=== PATIENT | female | born 1990 | race African-American/Black ===

== ENCOUNTER 2017-01-17 13:23 | Emergency (ER) | payer MEDICAID, OTHER ==
[~2017-01-17] VITALS: Ht 157.5 cm; Wt 140.9 kg
[~2017-01-17 13:23] MED LIST: NOCURR
[2017-01-17] MEDS ORDERED: Diuretic PO (15:15)
[2017-01-17 19:25] VITALS: BP 136/86
[2017-01-17] MEDS ORDERED: ALPRAZolam 0.25 MG TABLET PO ONE (19:30)
== END 2017-01-17 19:57 | disposition home or self-care (01) ==
LOC: EMS 13:26
DX: J02.9 Acute pharyngitis, unspecified (principal); R00.2 Palpitations; I10 Essential (primary) hypertension; G43.909 Migraine, unspecified, not intractable, without status migrainosus; Z88.6 Allergy status to analgesic agent
CPT/HCPCS: 93005; 99283

== ENCOUNTER 2025-02-09 12:03 | Emergency (ER) | payer OTHER ==
[~2025-02-09] VITALS: Ht 157.5 cm; Wt 72.0 kg
[~2025-02-09 12:03] MED LIST changes: +Diuretic PO; -NOCURR
[2025-02-09 12:41] VITALS: TEMP 97.5
[2025-02-09 13:23] LABS: BASOPHILS % (AUTO) 0.4 % (0.0-2.0); EOSINOPHILS % (AUTO) 1.1 % (1.0-6.0); HEMATOCRIT 35.1 % (36-46); HEMOGLOBIN 11.3 g/dL (12.0-16.0); LYMPHOCYTES # (AUTO) 1.2 K/uL (1.0-4.8); LYMPHOCYTES % (AUTO) 19.9 % (22.0-44.0); MEAN CORPUSCULAR HEMOGLOBIN 29.7 pg (26.0-34.0); MEAN CORPUSCULAR HGB CONC 32.1 G/dL (31.0-37.0); MEAN CORPUSCULAR VOLUME 92 fL (80-100); MONOCYTES # (AUTO) 0.4 K/uL (0.1-1.0); MONOCYTES % (AUTO) 6.7 % (2.0-9.0); NEUTROPHILS # (AUTO) 4.5 K/uL (1.8-7.7); NEUTROPHILS % (AUTO) 71.9 % (40.0-70.0); PLATELET COUNT (AUTO) 264 K/uL (150-450); RED CELL DISTRIBUTION WIDTH 15.6 % (11.5-14.5); WHITE BLOOD COUNT (AUTO) 6.2 K/uL (4.5-11.0)
[2025-02-09 13:31] LABS: ANION GAP 4 mmol/L (8-16); CALCIUM, TOTAL 8.4 mg/dL (8.8-10.5); CARBON DIOXIDE 29 mmol/L (22-29); CHLORIDE 104 mmol/L (98-107); CREATININE 0.55 mg/dL (0.60-1.30); GLOMERULAR FILTR. RATE CALC > 60 mL/min (>60); GLUCOSE,RANDOM 121 mg/dL (70-110); POTASSIUM 3.5 mmol/L (3.5-5.1); SODIUM SERUM 137 mmol/L (136-145); UREA NITROGEN, BLOOD 9 mg/dL (7-18)
[2025-02-09] MEDS ORDERED: DOCU100C33 PO (13:59)
[2025-02-09] MEDS ORDERED: TIRZ7.5P3 SQ (13:59)
[2025-02-09] MEDS ORDERED: HYDR-4527 PO (13:59)
[2025-02-09] MEDS ORDERED: LOSA-381 PO (13:59)
[2025-02-09] MEDS ORDERED: SERT-438 PO (13:59)
[2025-02-09] MEDS ORDERED: TOPI-97 PO (13:59)
[2025-02-09] MEDS ORDERED: VERA120T91 PO (13:59)
[2025-02-09] MEDS: ACETAMINOPHEN 500 MG TABLET PO ONE (14:04)
[2025-02-09] MEDS ORDERED: ACET-3385 PO (14:35)
[2025-02-09 14:43] VITALS: BP 153/97; PULSE 93; RESP 18; O2SAT 98
== END 2025-02-09 14:48 | disposition home or self-care (01) ==
LOC: EMS 12:06
DX: R20.2 Paresthesia of skin (principal); R51.9 Headache, unspecified; R11.0 Nausea; I10 Essential (primary) hypertension; Z88.6 Allergy status to analgesic agent; Z79.899 Other long term (current) drug therapy; Z98.890 Other specified postprocedural states
CPT/HCPCS: 70450; 80048; 84703; 85025; 99284